=== PATIENT | male | born 1955 | race Hispanic/Latino ===

== ENCOUNTER 2022-07-09 22:04 | Emergency (ER) | payer OTHER ==
[~2022-07-09] VITALS: Ht 170.2 cm; Wt 88.5 kg
[2022-07-09 22:07] VITALS: BP 128/81
== END 2022-07-09 22:30 | disposition home or self-care (01) ==
LOC: EDH 22:04
DX: I83.892 Varicose veins of left lower extremity with other complications (principal)
CPT/HCPCS: 99282